=== PATIENT | male | born 1940 | race Caucasian/White ===

== ENCOUNTER 2019-04-15 23:53 | Emergency (ER) | payer OTHER ==
[~2019-04-15] VITALS: Ht 175.3 cm; Wt 106.6 kg
[~2019-04-15 23:53] MED LIST: AMLO1TAB3 PO; ATEN-166 PO; LISI10TA5 PO
[2019-04-15 23:55] VITALS: BP_SYST 151
[2019-04-16 02:10] VITALS: BP_SYST 140
== END 2019-04-16 02:10 | disposition home or self-care (01) ==
LOC: SED 23:53
DX: H60.91 Unspecified otitis externa, right ear (principal); N40.0 Benign prostatic hyperplasia without lower urinary tract symptoms; I10 Essential (primary) hypertension; Z79.899 Other long term (current) drug therapy
CPT/HCPCS: 99283

== ENCOUNTER 2019-08-13 16:09 | Emergency (ER) | payer OTHER, BC ==
[~2019-08-13] VITALS: Ht 175.3 cm; Wt 99.8 kg
[2019-08-13 16:21] VITALS: BP_SYST 121
--- NOTE | 2019-08-13 16:30 | NUR ---
Patient to ER bed 2 to gown for evaluation. Side rails up. Report given to TAPAN Noriega.
--- NOTE | 2019-08-13 16:31 | NUR ---
Patient is awake, alert, and oriented x4. His is at bedside. Patient reports an intermittent nosebleed x 1 week. He denies nausea, vomiting, and pain at this time.
--- NOTE | 2019-08-13 16:40 | NUR ---
Dr Gandhi at bedside examining patient
[2019-08-13] MEDS ORDERED: TRANEXAMIC ACID 1,000 MG/10 ML VIAL IV ONE (16:45)
[2019-08-13 17:07] LABS: BASOPHILS # (AUTO) 0.1 K/uL (0.0-0.2); BASOPHILS % (AUTO) 0.6 % (0.0-2.0); EOSINOPHILS # (AUTO) 0.2 K/uL (0.0-0.4); EOSINOPHILS % (AUTO) 1.5 % (0.0-4.0); HEMATOCRIT 39.6 % (36-54); LYMPHOCYTES # (AUTO) 1.4 K/uL (1.0-5.5); LYMPHOCYTES % (AUTO) 13.7 % (20.5-51.5); MEAN CORPUSCULAR HEMOGLOBIN 31 pg (27-31); MEAN CORPUSCULAR HGB CONC 36 % (32-36); MEAN CORPUSCULAR VOLUME 88 fL (79.0-98.0); MONOCYTES # (AUTO) 0.9 K/uL (0.0-1.0); NEUTROPHILS # (AUTO) 7.7 K/uL (1.8-7.7); NEUTROPHILS % (AUTO) 75.2 % (40.0-70.0); PLATELET COUNT (AUTO) 183 K/uL (130-430); RED BLOOD CELL COUNT(AUTO) 4.49 MIL/uL (4.2-6.2); RED CELL DISTRIBUTION WIDTH 13.5 % (9.0-15.0); WHITE BLOOD COUNT (AUTO) 10.3 K/uL (4.8-10.8)
[2019-08-13 17:22] LABS: ANION GAP 6 (5-15); CALCIUM 8.1 mg/dL (8.4-11.0); CHLORIDE 98 mmol/L (98-107); CREATININE 1.08 mg/dL (0.55-1.30); GLUCOSE 139 mg/dL (70-99); POTASSIUM 3.2 mmol/L (3.5-5.1); SODIUM SERUM 132 mmol/L (136-145); UREA NITROGEN, BLOOD 16 mg/dL (8-21)
[2019-08-13 17:27] LABS: ALANINE AMINOTRANSFERASE 90 U/L (12-78); ALBUMIN 2.6 g/dL (3.4-4.8); ASPARTATE AMINOTRANSFERASE 76 U/L (10-37); TOTAL BILIRUBIN 1.5 mg/dL (0.0-1.0)
[2019-08-13 17:42] LABS: PROTHROMBIN TIME 10.4 SECS (9.5-12.5)
[2019-08-13] MEDS ORDERED: ALBUTEROL SULFATE 0.083% 2.5 MG/3 ML VIAL.NEB INH ONE (18:00)
--- NOTE | 2019-08-13 18:08 | NUR ---
Patient given written and verbal discharge instructions and verbalizes understanding. ER MD discussed with patient the results and treatment provided. Patient in stable condition. ID arm band removed. No Rx given. Patient educated on pain management and to follow up with PMD. Pain Scale 0/10. Opportunity for questions provided and answered. Medication side effect fact sheet provided.
[2019-08-13 18:09] VITALS: BP_SYST 121
== END 2019-08-13 18:08 | disposition home or self-care (01) ==
LOC: SED 16:09
DX: R04.0 Epistaxis (principal); I10 Essential (primary) hypertension; Z79.899 Other long term (current) drug therapy
CPT/HCPCS: 30901; 36415; 80053; 85025; 85610; 85730; 94640; 99284; J3490; J7613

== ENCOUNTER 2021-01-12 18:49 | Emergency (ER) | payer OTHER, BC ==
[~2021-01-12] VITALS: Ht 175.3 cm; Wt 102.5 kg
[~2021-01-12 18:49] MED LIST changes: +LISI10TA29 PO; -LISI10TA5 PO
[2021-01-12 18:50] VITALS: BP_SYST 157
[2021-01-12] MEDS ORDERED: PHENYLEPHRINE HCL 1% NASAL 15 ML NASPR NS PRN (19:15)
[2021-01-12] MEDS ORDERED: TRANEXAMIC ACID 1,000 MG/10 ML VIAL TP ONE (20:15)
[2021-01-12 20:30] VITALS: BP_SYST 141
== END 2021-01-12 20:30 | disposition home or self-care (01) ==
LOC: SED 18:49
DX: R04.0 Epistaxis (principal); I10 Essential (primary) hypertension; N40.0 Benign prostatic hyperplasia without lower urinary tract symptoms; Z79.899 Other long term (current) drug therapy
CPT/HCPCS: 99281